=== PATIENT | female | born 2005 | race Caucasian/White ===

== ENCOUNTER 2025-06-26 18:53 | Emergency (ER) | payer BC, SELFPAY ==
--- OUTSIDE RECORDS SUMMARY | 2025-06-26 19:10 | XMS_ITS | Clinical Summary ---
[facility] [address] [place] [address] Care Team Providers Care Frozen Food Department Manager Name Role Phone Osvaldo Quinteros MD Primary Care Provider [phone] Social History Tobacco Use Types Packs/Day Years Used Date Smoking Tobacco: Never Assessed Comments Unknown Sex and Gender Information Value Date Recorded Sex Assigned at Not on file Legal Sex Female 11:13 AM EDT Gender Identity Not on file Sexual Orientation Not on file Plan of Treatment Upcoming Encounters Date Type Department Care Team (Late st Contact Info) Description 08/22/2025 10:30 AM EDT Ancillary Procedure [facility] [address] [phone] 08/22/2025 11:00 AM EDT Office Visit [facility] [address] [phone] Santo Solis MD [address] [address] Health Maintenance Due Date Last Done Comments ANNUAL PHYSICAL 2005 HEPATITIS C SCREENING 2005 HPV VACCINES (1 - 3-dose series) 2020 MENINGOCOCCAL B VACCINE (1 o f 2 - Standard) 2021 TDAP/TD VACCINES (1 - Tdap) 2024 COVID-19 Vaccine (2023-2 5 season) 2025 INFLUENZA VACCINE 07/23/2025 MENINGOCOCCAL VACCINE Aged Out No denise pérez eligible based on patient's age to complete this topic Pneumococcal Vaccine 0-49 Aged Out No longer eligible based on patient's age to complete this topic Insurance [employer] Care Teams Frozen Food Department Manager Relationship Specialty Start Date End Date Osvaldo Quinteros MD [address] [facility] [place] [id number] PCP - General Family Medicine 06/25/25
--- NOTE | 2025-06-26 19:13 | ED_ITS ---
Discharge Plan Disposition Patient Disposition: Home, Self-Care Referrals Follow up/Referrals: Osvaldo Quinteros [Primary Care Provider, Medical] - See instructions Activity Restrictions/Add. Instructions Additional Instructions/Restrictions: At this time it was felt you are safe to be discharged home. If new or worsening symptoms please do not hesitate to return the emergency department, especially if your pain migrates to your right lower quadrant and become severe as I did not get a CT scan to evaluate for appendicitis today. If your pain persists beyond 3 to 5 days please follow-up with either your photofinishing laboratory worker or your family doctor for continued evaluation. Clinical Impressions Clinical Impression: Abdominal pain Instructions Patient Instructions: DI for Diarrhea and Traveler's Diarrhea -- Adult, DI for Diarrhea and Traveler's Diarrhea -- Child, DI for Nausea -- Adult, DI for Nausea -- Child Print Language Print Language: Irish Discharge ED Provider: Ash Driscoll General Adult HPI General Chief complaint: Nausea/Vomiting/Diarrhea Stated complaint: Vomiting x3days Time Seen by Provider: 06/26/25 19:01 History of Present Illness HPI narrative: Patient 19-year-old female with no pertinent past medical history who presents emergency department for evaluation of nausea and vomiting. History is obtained by patient at bedside. She has been trying to conceive and is on a progesterone trial right now has had sore breast, nausea, vomiting, vague abdominal cramping pain. No dysuria. No chest pain reported. She does not have any abdominal pain currently. When she was vomiting she had an episode of passing out which caused her to become concerned and presented for continued evaluation. No trauma. No other acute complaints at this time. Please note that above description of symptoms, in this electronic medical record under categorization of recalled from ER triage doctor by RN are reflective of an initial nursing assessment, however, is not reflective of my full history and physical exam that was personally taken and clarified. Consequentially, this preceding description of symptoms, which may include the patient's categorized chief complaint in the EMR, do not reflect my personal clinical impression, and the ultimate description of history of present illness and patient stated complaints should be deferred to this section of the note. Unless stated otherwise or congruent with this section of the note, additional signs, symptoms, or incongruence should be interpreted as inaccurate with my clinical impression. Related Data Allergies Allergy/AdvReac Type Severity Reaction Status Date / Time No Known Allergies Allergy Verified 06/26/25 19:24 [facility] Disclaimer: The information contained in this section may have been updated after the patient was seen, as this information can be updated by other users. Social History Smoking Status: Never smoker alcohol intake: never current occupational status: other Travel in the last 8 weeks?: None ROS Obtained: Yes Systems reviewed as appropriate & no additional complaints except as documented Physical Exam General General appearance: alert Head Head exam: atraumatic and normocephalic Eye Eye exam: Present PERRL and EOMI ENT ENT exam: Present mucous membranes moist Neck Neck exam: Present normal inspection Chest Chest inspection: Present normal inspection and symmetric chest wall rise Respiratory Respiratory exam: Absent respiratory distress Cardiovascular Cardiovascular exam: Present regular rate and normal rhythm Abdominal Exam Abdominal exam: Present soft and tenderness (Mild, suprapubic left-sided); Absent guarding or rebound Extremities Exam Extremities exam: Present normal inspection Neurological Exam Neurological exam: Present alert Psychiatric Psychiatric exam: Present normal affect Skin Skin exam: Present warm and dry Medical Decision Making Medical Records Screening: Per USPSTF and CDC recommendations, given the prevalence of disease in our region, it is our hospital?s policy to screen for HIV and viral Hepatitis for all patients aged 18 and over and those with ongoing risk factors. Drew Inquiry Pt receiving controlled substance: No Vital Signs: 06/26/25 19:15 06/26/25 20:25 06/26/25 21:30 Temperature 98.6 F 98.5 F Temperature Source Oral Pulse Rate 86 83 Pulse Rate [Right] 112 H Respiratory Rate 16 16 18 Blood Pressure 151/93 H 130/74 Blood Pressure [Right Arm] 152/96 H Blood Pressure Mean [Right Arm] 114 02 Sat by Pulse Oximetry 96 100 98 Oxygen Delivery Method Room Air Room Air Room Air Lab Data Lab Results 06/26/25 19:03: Urine Color Yellow, Urine Appearance Clear, Urine pH 5.5, Ur Specific [place] <= 1.005, Urine Protein Negative, Urine Glucose (UA) Negative, Urine Ketones Negative, Urine Blood Negative, Urine Nitrate Negative, Urine Bilirubin Negative, Urine Urobilinogen 0.2, Ur Leukocyte Esterase Negative, Urine RBC None, Urine WBC None, Ur Squamous Epith Cells Occasional, Urine Bacteria Trace 06/26/25 19:18: WBC 9.2, RBC 4.95, Hgb 14.2, Hct 42.1, MCV 85.1, MCH 28.7, MCHC 33.7, RDW 11.5, Plt Count 364, MPV 8.9, Neut % (Auto) 63.9, Lymph % (Auto) 26.2, Garfield % (Auto) 7.6, Eos % (Auto) 1.8, Baso % (Auto) 0.4, Neut # (Auto) 5.9, Lymph # (Auto) 2.4, Garfield # (Auto) 0.7, Eos # (Auto) 0.2, Baso # (Auto) 0.0, Sodium 140, Potassium 4.7, Chloride 104, Carbon Dioxide 27, Anion Gap 13.7, BUN 10, Creatinine 0.70, Estimated Creat Clear 107, Estimated GFR 108, Est GFR ( Amer) 130, Glucose 79, Calcium 9.6, Total Bilirubin 0.6, AST 36, ALT 21, Alkaline Phosphatase 63, Total Protein 7.9, Albumin 4.6, Globulin 3.3 H, Albumin/Globulin Ratio 1.4, Lipase 145, Serum HCG, Qual Negative 06/26/25 19:18 06/26/25 19:18 Orders (Tests/Meds): ED MEDICATIONS Discontinued Medications Generic Name Dose Route Start Last Admin Trade Name Freq PRN Reason Stop Dose Admin Acetaminophen 1,000 mg 06/26/25 19:12 06/26/25 19:29 Acetaminophen 1,000mg/100ml Vial IV 06/26/25 19:13 1,000 mg ONCE ONE Administration Dicyclomine HCl 10 mg 06/26/25 20:16 06/26/25 20:22 Dicyclomine 10mg Capsule PO 06/26/25 20:17 10 mg ONCE ONE Administration Ketorolac Tromethamine 30 mg 06/26/25 20:15 06/26/25 20:22 Ketorolac 30mg/Ml Vial IV 06/26/25 20:16 30 mg ONCE ONE Administration Ondansetron HCl 4 mg 06/26/25 19:12 06/26/25 19:29 Ondansetron 4mg/2ml Vial IV 06/26/25 19:13 4 mg ONCE ONE Administration ORDERS Category Date Time Status US transvaginal Stat Exams 06/26/25 20:15 Completed CBC w/Auto Diff [Complete Blood Count Auto Diff] Stat Lab 06/26/25 19:18 Completed CMP [Comprehensive Metabolic Panel] Stat Lab 06/26/25 19:18 Completed HCG Qualitative, Serum Stat Lab 06/26/25 19:18 Completed Lipase Stat Lab 06/26/25 19:18 Completed UA [Urinalysis and Microscopic] Stat Lab 06/26/25 19:03 Completed ECG Data Tracing #1: Independently inter by me rate is 95, rhythm is regular, axis is normal, no ST elevation in anatomical contiguous leads, QTc 389. Medical Decision Narrative: In summary patient is a 19-year-old female past medical history described above who presents emergency department for evaluation of nausea, vomiting in the setting of trying to conceive and syncope. Patient is hemodynamically stable and nontoxic-appearing upon open, afebrile. Patient has nontender abdominal exam. From nausea vomiting standpoint differential includes , less likely pancreatitis, viral syndrome, among others. Workup we conducted with hematologic labs, urinalysis. Interventions include crystalloid bolus, Zofran, IV Tylenol. From a syncope standpoint she has a strong story for vasovagal syncope and did not have any resultant trauma therefore limited workup will be conducted with EKG. Diagnostic imaging abdomen was considered but has a benign exam and no pain currently will be deferred. Initial workup reviewed by me hematologic labs are nonactionable no significant leukocytosis no KATE or critical electrolyte abnormality patient is not urinalysis interpreted by me and not consistent with infection. Per repeat evaluation patient had resurgence of her lower abdominal pain worse on the left. Given this and her history of polycystic ovarian syndrome transvaginal ultrasound will be obtained to rule out torsion. Bentyl and Toradol will be administered. Transvaginal ultrasound has a retroverted uterus that is normal, numerous follicles in the ovaries bilaterally left ovary 3.5 x 2.2 cm, normal ovarian flow on Doppler. Given this combined with ovarian size I am not concerned for torsion at this time. Plan repeat evaluation patient was resting comfortably in bed and is appropriate for outpatient management at this time was discharged with return precautions and verbalized understanding. Critical Care Critical Care Time Critical Care Time: No
[2025-06-26 19:15] VITALS: BP 152/96; PULSE 112; RESP 16; TEMP 37; O2SAT 96; BMI 47.8
[2025-06-26 19:20] LABS: Bilirubin,Urine Negative (Negative); Color,Urine YELLOW (Yellow); Glucose,Urine (UA) Negative (Negative); Ketones,Urine Negative (Negative); Leukocyte Esterase,Urine Negative (Negative); Microscopic, Urine URINE MICROSCOPIC (MICROSCOPIC); PH,Urine 5.5 (5.0-8.5); Protein,Urine Negative (Negative); Specific Gravity, Urine <= 1.005 (1.005-1.030); Urobilinogen,Urine 0.2 EU/dl (0.2)
[2025-06-26 19:25] LABS: Hematocrit 42.1 % (37.0-47.0); Hemoglobin 14.2 g/dL (12.2-16.2); Immature Granulocytes % 0.1 %; Mean Corpuscular HGB Conc 33.7 g/dL (31.8-35.4); Mean Corpuscular Hemoglobin 28.7 pg (27.0-31.2); Mean Corpuscular Volume 85.1 fl (81-99); Nucleated Red Blood Cells % 0 %; Platelet Count 364 K/mm3 (142-424); Red Blood Count 4.95 M/mm3 (4.20-5.40); Red Cell Distribution Width-SD 35.5 fL; White Blood Count 9.2 K/mm3 (4.5-13.0)
[2025-06-26] MEDS: ONDANSETRON 4MG/2ML VIAL 4 MG IV (19:29)
[2025-06-26] MEDS: ACETAMINOPHEN 1,000MG/100ML VIAL 1000 MG IV (19:29)
[2025-06-26 19:41] LABS: Alanine Aminotransferase 21 U/L (12-78); Albumin Level 4.6 g/dl (3.5-5.0); Albumin/Globulin Ratio 1.4 (1.1-1.8); Alkaline Phosphatase 63 U/L (38-126); Anion Gap 13.7 mEq/L (5-15); Aspartate Amino Transferase 36 U/L (14-36); Bilirubin,Total 0.6 mg/dl (0.2-1.3); Blood Urea Nitrogen 10 mg/dl (7-17); Calcium 9.6 mg/dl (8.4-10.2); Carbon Dioxide 27 mmol/L (22.0-30.0); Chloride 104 mmol/L (98-107); Creatinine Clearance Estimated 107 mL/min (50-200); Creatinine,Serum 0.70 mg/dl (0.52-1.04); Estimated Glomerular Filt Rate 108 ml/min (>60); GFR (African American) 130 ML/MIN (>60); Globulin 3.3 g/dL (1.3-3.2); Glucose 79 mg/dl (74-100); Lipase 145 U/L (23-300); Potassium 4.7 mmoL/L (3.5-5.1); Sodium 140 mmol/L (136-145); Total Protein,Serum 7.9 g/dl (6.3-8.2)
[2025-06-26 19:43] LABS: HCG Qualitative, Serum Negative (Negative)
[2025-06-26 19:47] LABS: Bacteria,Urine Trace /lpf; Squamous Epithelial Cell,Urine Occasional #/hpf (0-5)
--- NOTE | 2025-06-26 20:15 | US_ITS ---
PROCEDURE INFORMATION: Exam: US Pelvis, Transvaginal, Non-Obstetric Exam date and time: 06/26/2025 8:33 PM Age: 19 years old Clinical indication: Pelvic pain; Llq pain; Additional info: Torsion ruleout TECHNIQUE: Imaging protocol: Real-time transvaginal pelvic (non-obstetric) ultrasound with image documentation. Transvaginal imaging was used for better evaluation of the endometrium, adnexa, and/or cervix. COMPARISON: No relevant prior studies available. FINDINGS: Uterus: Uterus is retroverted and normal. 6.4 x 2.6 x 3.3 cm for a volume of 29 cc. Endometrial stripe is normal, 5 mm.. Right ovary/adnexa: Numerous small follicles. 3.5 x 2.2 x 1.6 cm for a volume of 6.6 cc. No mass. Normal ovarian blood flow on color Doppler. Left ovary/adnexa: Numerous small follicles. 3.5 x 2.2 x 1.4 cm for a volume of 5.3 cc. No mass. Normal ovarian blood flow on color Doppler. Urinary bladder: Urinary bladder is limited. Intraperitoneal space: No free fluid. IMPRESSION: No evidence of torsion. Numerous small follicles, consider PCOS.
--- NOTE | 2025-06-26 20:17 | PC.NURSE ---
Had radiology page for ultra sound to R/O torsion
[2025-06-26] MEDS: KETOROLAC 30MG/ML VIAL 30 MG IV (20:22)
[2025-06-26 20:25] VITALS: BP 151/93; PULSE 86; RESP 16; TEMP 36.9; O2SAT 100
[2025-06-26 21:30] VITALS: BP 130/74; PULSE 83; RESP 18; O2SAT 98
[2025-06-26 22:14] VITALS: BP 119/84; PULSE 86; RESP 21; TEMP 36.6; O2SAT 98
== END 2025-06-26 22:17 | disposition home or self-care (01) ==
PROVIDERS: Emergency Provider Emergency Medicine; PCP Family Medicine
DX: R10.9 Unspecified abdominal pain (principal); R11.10 Vomiting, unspecified; R55 Syncope and collapse
CPT/HCPCS: 76830; 80053; 81001; 83690; 84703; 85025; 93005; 96374; 96375; 99285; J0131; J1885; J2405

== ENCOUNTER 2025-07-21 11:23 | Emergency (ER) | payer BC, SELFPAY ==
--- OUTSIDE RECORDS SUMMARY | 2025-07-21 11:37 | XMS_ITS | Clinical Summary ---
[facility] Address [address] [place] [address] Care Team Providers Care Baggage Smasher Name Role Phone Osvaldo Quinteros MD Primary Care Provider [phone] Social History Tobacco Use Types Packs/Day Years [...] Description 08/22/2025 10:30 AM EDT Ancillary Procedure [facility] [address] [phone] 08/22/2025 11:00 AM EDT Office Visit [facility] [address] [phone] Santo Solis MD [address] [address] Health Maintenance Due Date Last Done Comments ANNUAL PHYSICAL 2005 HEPATITIS C SCREENING 2005 HPV VACCINES (1 - 3-dose series) 2020 MENINGOCOCCAL B VACCINE (1 o f 2 - Standard) 2021 TDAP/TD VACCINES (1 - Tdap) 2024 INFLUENZA VACCINE 05/23/2025 MENINGOCOCCAL VACCINE Aged Out No denise pérez eligible based on patient's age to complete this topic Pneumococcal Vaccine 0-49 Aged Out No longer eligible based on patient's age to complete this topic Insurance [employer] EM[employer]OY[employer] Member Subscriber Plan / Payer (Ef fective 2025-Present) Name:Kevin Meghna Relation to Subscriber:Child Name:Marimar Soliman Date of :1978 Address: [address] [place] [address] Payer ID:[id number] (NAIC) Type:Not on file Address: [facility] [id number] [place] [id number] Care Teams Baggage Smasher Relationship Specialty Start Date End Date Osvaldo Quinteros MD [address] [place] [address] PCP - General Family Medicine 06/25/25
[2025-07-21 11:39] VITALS: BP 110/63; PULSE 90; RESP 17; TEMP 36.6; O2SAT 100; BMI 33.6
--- NOTE | 2025-07-21 11:58 | HMH.EDGENADL ---
Discharge Plan Disposition Patient Disposition: Home, Self-Care Condition: Good Prescriptions Prescriptions: New ondansetron 4 mg tablet,disintegrating 4 mg PO Q6H PRN (Reason: nausea and vomiting) Qty: 14 0RF ketorolac 10 mg tablet 10 mg PO Q6H PRN (Reason: pain) 5 Days Qty: 20 0RF No Action ondansetron 4 mg tablet,disintegrating 4 mg PO Q8H PRN (Reason: nausea and vomiting) 4 Days Qty: 12 0RF Referrals Follow up/Referrals: Osvaldo Quinteros [Primary Care Provider, Medical] - See instructions Marie Perez [Referring, Medical] - See instructions Activity Restrictions/Add. Instructions Additional Instructions/Restrictions: Please return to the emergency department with any worsening signs or symptoms. Please take your medication as prescribed. Please take your anti-inflammatory medication as prescribed, not exceeding 40 mg a day max dosing. Please take with food. Please use your antinausea medicine as prescribed. Please keep your follow-up appointment in surgery with your TECHNICAL PROGRAM MANAGER provider. Clinical Impressions Clinical Impression: History of PCOS, History of endometriosis, Abdominal pain, Nausea & vomiting Instructions Patient Instructions: Polycystic Ovary Syndrome, DI for Endometriosis, DI for Acute Abdominal Pain Print Language Print Language: [place] Discharge ED Provider: Sandrine London General Adult HPI <JC Bills - Last Filed: 07/21/25 13:58> General Chief complaint: Abdominal Pain Stated complaint: abd Pain, blood in vomit, Surgery scheduled 07/29 Time Seen by Provider: 07/21/25 11:48 Mode of Arrival: Ambulatory Source of Information: Patient Description of Symptoms (Recalled from ER Triage Doc. by RN): Patient presents to ED with c/o n/v and lower abdominal cramping. Patient states she is scheduled for surgery 07/29 due to PCOS and Endometriosis, states she thinks symptoms are related as she has experienced these symptoms on and off for a long time . Patient notes a scant amount of bright red blood in her vomit this AM. History of Present Illness HPI narrative: 19-year-old female presents the emergency department accompanied by her father for lower abdominal pain nausea vomiting, for the last 4 to 5 days, patient has had 2 episodes of blood-tinged , vomit, this a.m., patient admits to objective fever chills denies any chest pain or shortness of breath, denies any diarrhea constipation, denies any urinary type symptomatology, denies any vaginal discharge, denies any vaginal bleeding, denies any new risky sexual contacts or sexual behaviors, patient has longstanding history of PCOS and endometriosis, states this pain is somewhat similar to her baseline, patient is slated for what sounds like an endometrial ablation next month in [facility]. Patient denies any alcohol tobacco or drug use, denies any other real relevant past medical history, takes no other medications at home except for GLP-1 agonist for weight loss for which she recently stopped prior to her surgery. Initial triage vitals are unremarkable, of note patient endorses poor p.o. intake, and called her TECHNICAL PROGRAM MANAGER physician's office, who prompted her to come to the emergency department for fluids , and to get checked out . Please note that above description of symptoms, in this electronic medical record under categorization of recalled from ER triage doctor by RN are reflective of an initial nursing assessment, however, is not reflective of my full history and physical exam that was personally taken and clarified. Consequentially, this preceding description of symptoms, which may include the patient's categorized chief complaint in the EMR, do not reflect my personal clinical impression, and the ultimate description of history of present illness and patient stated complaints should be deferred to this section of the note. Unless stated otherwise or congruent with this section of the note, additional signs, symptoms, or incongruence should be interpreted as inaccurate with my clinical impression. Onset (ago): day(s) Related Data Previous Rx's ?Medication ?Instructions ?Recorded ondansetron 4 mg disintegrating 4 mg PO Q8H PRN nausea and 06/26/25 tablet vomiting 4 days #12 tabs ketorolac 10 mg tablet 10 mg PO Q6H PRN pain 5 days #20 07/21/25 tabs ondansetron 4 mg disintegrating 4 mg PO Q6H PRN nausea and 07/21/25 tablet vomiting #14 tabs Allergies Allergy/AdvReac Type Severity Reaction Status Date / Time No Known Allergies Allergy Verified 06/26/25 19:24 [facility] <JC Bills - Last Filed: 07/21/25 13:58> PFS Disclaimer: The information contained in this section may have been updated after the patient was seen, as this information can be updated by other users. Social History (Updated 06/26/25 @ 22:14 by Ash Driscoll MD) Smoking Status: Former smoker alcohol intake: never current occupational status: other Travel in the last 8 weeks?: None Have you lived/traveled outside [place] in past 30 days?: No Contact w/someone who lives/traveled outside US past 30 days?: No Exposure to someone with infectious disease in past 14 days?: No Do you have a fever (greater than 100.4 F or 38 C)?: No Have you tested positive for COVID-19?: No Exposed to someone with COVID-19 in past 14 days?: No Do you have a sore throat?: No Do you have a cough?: No Do you have any weakness?: No Do you have any diarrhea?: No Are you experiencing any unusual bleeding?: No Do you have any muscle aches/pain?: No Do you have any abdominal pain?: No Are you experiencing loss of taste or smell?: No <JC Bills - Last Filed: 07/21/25 13:58> ROS Obtained: Yes All systems reviewed & no additional complaints except as documented Physical Exam <JC Bills - Last Filed: 07/21/25 13:58> General General appearance: alert and in no apparent distress Head Head exam: atraumatic and normocephalic Eye Eye exam: Present PERRL and EOMI ENT ENT exam: Present mucous membranes moist Neck Neck exam: Present normal inspection Chest Chest inspection: Present normal inspection and symmetric chest wall rise Respiratory Respiratory exam: Present normal lung sounds bilaterally; Absent respiratory distress Cardiovascular Cardiovascular exam: Present regular rate and normal rhythm Abdominal Exam Abdominal exam: Present soft and tenderness; Absent guarding, rebound or rigidity Abdominal tenderness: Present suprapubic and mild Extremities Exam Extremities exam: Present normal inspection Neurological Exam Neurological exam: Present alert and oriented X3 Psychiatric Psychiatric exam: Present normal affect Skin Skin exam: Present warm and dry Medical Decision Making <JC Bills - Last Filed: 07/21/25 13:58> Medical Records Medical records reviewed: Yes I reviewed the patient's medical records. Screening: Per USPSTF and CDC recommendations, given the prevalence of disease in our region, it is our hospital?s policy to screen for HIV and viral Hepatitis for all patients aged 18 and over and those with ongoing risk factors. Drew Inquiry Pt receiving controlled substance: No Drew was queried for this patient: No Vital Signs: 07/21/25 11:39 07/21/25 12:01 07/21/25 13:25 Temperature 97.9 F Temperature Source Oral Pulse Rate 99 H 96 H Pulse Rate [Right] 90 Respiratory Rate 17 17 Blood Pressure 106/72 L 130/76 Blood Pressure [Right Arm] 110/63 Blood Pressure Mean 93 Blood Pressure Mean [Right Arm] 78 Blood Pressure Source [Right Arm] Automatic Cuff Blood Pressure Position [Right Arm] Sitting 02 Sat by Pulse Oximetry 100 99 99 Oxygen Delivery Method Room Air Room Air 07/21/25 13:31 07/21/25 13:45 07/21/25 14:05 Temperature 98.5 F Temperature Source Pulse Rate 87 80 89 Pulse Rate [Right] Respiratory Rate 19 19 Blood Pressure 105/68 L 105/68 L 117/79 Blood Pressure [Right Arm] Blood Pressure Mean 82 Blood Pressure Mean [Right Arm] Blood Pressure Source [Right Arm] Blood Pressure Position [Right Arm] 02 Sat by Pulse Oximetry 98 100 Oxygen Delivery Method Room Air Room Air Lab Data Lab results reviewed: Yes I reviewed the patient's lab results. Lab Results 07/21/25 12:55: WBC 8.5, RBC 4.85, Hgb 13.7, Hct 41.4, MCV 85.4, MCH 28.2, MCHC 33.1, RDW 11.5, Plt Count 329, MPV 8.9, Neut % (Auto) 61.0, Lymph % (Auto) 29.8, [place] % (Auto) 6.4, Eos % (Auto) 2.1, Baso % (Auto) 0.5, Neut # (Auto) 5.2, Lymph # (Auto) 2.5, [place] # (Auto) 0.5, Eos # (Auto) 0.2, Baso # (Auto) 0.0, Sodium 139, Potassium 4.0, Chloride 106, Carbon Dioxide 26, Anion Gap 11.0, BUN 7, Creatinine 0.60, Estimated Creat Clear 205, Estimated GFR 129, Est GFR ( Amer) 156, Glucose 85, Calcium 9.1, Magnesium 2.1, Total Bilirubin 0.4, AST 26, ALT 22, Alkaline Phosphatase 91, Total Protein 7.1, Albumin 4.1, Globulin 3.0, Albumin/Globulin Ratio 1.4, Lipase 90 07/21/25 13:24: Urine HCG, Qual Negative 07/21/25 13:26: Urine Color Yellow, Urine Appearance Clear, Urine pH 6.0, Ur Specific [place] 1.015, Urine Protein Negative, Urine Glucose (UA) Negative, Urine Ketones Negative, Urine Blood Negative, Urine Nitrate Negative, Urine Bilirubin Negative, Urine Urobilinogen 0.2, Ur Leukocyte Esterase Negative, Urine RBC None, Urine WBC Occasional, Ur Squamous Epith Cells 5-10, Urine Bacteria 2+ 07/21/25 12:55 07/21/25 12:55 Orders (Tests/Meds): ED MEDICATIONS Discontinued Medications Generic Name Dose Route Start Last Admin Trade Name Freq PRN Reason Stop Dose Admin Ketorolac Tromethamine 15 mg 07/21/25 12:11 07/21/25 12:23 Ketorolac 15mg/Ml Vial IV 07/21/25 12:12 15 mg ONCE ONE Administration Ondansetron HCl 4 mg 07/21/25 12:11 07/21/25 12:23 Ondansetron 4mg/2ml Vial IV 07/21/25 12:12 4 mg ONCE ONE Administration ORDERS Category Date Time Status US transvaginal Stat Exams 07/21/25 12:07 Completed Complete Blood Count Auto Diff Stat Lab 07/21/25 12:55 Completed Comprehensive Metabolic Panel Stat Lab 07/21/25 12:55 Completed Lactic Acid Stat Lab 07/21/25 12:06 Ordered Lipase Stat Lab 07/21/25 12:55 Completed Magnesium Stat Lab 07/21/25 12:55 Completed Urinalysis and Microscopic Stat Lab 07/21/25 13:26 Completed Urine , HCG Qual. Stat Lab 07/21/25 13:24 Completed Urine Culture Stat Micro 07/21/25 13:26 Received Medical Decision Narrative: 19-year-old female presents to the emergency department with lower abdominal pain nausea vomiting for the last 4 to 5 days, 2 episodes of blood-tinged vomit differential diagnose include but not limited to endometriosis, PCOS, ovarian torsion, ovarian cyst rupture, adhesions, acute UTI, among others. I discussed the patient's case with attending physician Will obtain basic laboratory studies, EKG, transvaginal ultrasound for further evaluation/characterization, lactic acid level, lipase level magnesium level UA, urine hCG, 15 mg IV Toradol, and 4 mg IV Zofran for nausea and pain. CBC unremarkable CMP is unremarkable I reviewed the patient's transvaginal ultrasound along the corresponding radiologic report, multiple bilateral ovarian follicles all which demonstrate peripheral distribution 1 nonspecific similar feature can be seen with context of PCOS, correlate clinically. hCG qualitative negative UA is notable for negative leukocyte esterase no RBCs 5-10 squamous cells 2+ bacteria occasional WBCs. I discussed the results with the patient and family at bedside patient and family are in agreement with current discharge plan/treatment plan, patient will keep her slated appointment for surgery with her TECHNICAL PROGRAM MANAGER in the upcoming days, I will prescribe the patient 4 mg p.o. Zofran, as well as 10 mg p.o. Toradol every 6 for pain, patient was given strict ED return precautions. Patient voiced understanding and agreement with current treatment plan/discharge plan. <Sandrine London, DO - Last Filed: 07/21/25 16:02> Vital Signs: 07/21/25 11:39 07/21/25 12:01 07/21/25 13:25 Temperature 97.9 F Temperature Source Oral Pulse Rate 99 H 96 H Pulse Rate [Right] 90 Respiratory Rate 17 17 Blood Pressure 106/72 L 130/76 Blood Pressure [Right Arm] 110/63 Blood Pressure Mean 93 Blood Pressure Mean [Right Arm] 78 Blood Pressure Source [Right Arm] Automatic Cuff Blood Pressure Position [Right Arm] Sitting 02 Sat by Pulse Oximetry 100 99 99 Oxygen Delivery Method Room Air Room Air 07/21/25 13:31 07/21/25 13:45 07/21/25 14:05 Temperature 98.5 F Temperature Source Pulse Rate 87 80 89 Pulse Rate [Right] Respiratory Rate 19 19 Blood Pressure 105/68 L 105/68 L 117/79 Blood Pressure [Right Arm] Blood Pressure Mean 82 Blood Pressure Mean [Right Arm] Blood Pressure Source [Right Arm] Blood Pressure Position [Right Arm] 02 Sat by Pulse Oximetry 98 100 Oxygen Delivery Method Room Air Room Air Lab Data Lab Results 07/21/25 12:55: WBC 8.5, RBC 4.85, Hgb 13.7, Hct 41.4, MCV 85.4, MCH 28.2, MCHC 33.1, RDW 11.5, Plt Count 329, MPV 8.9, Neut % (Auto) 61.0, Lymph % (Auto) 29.8, [place] % (Auto) 6.4, Eos % (Auto) 2.1, Baso % (Auto) 0.5, Neut # (Auto) 5.2, Lymph # (Auto) 2.5, [place] # (Auto) 0.5, Eos # (Auto) 0.2, Baso # (Auto) 0.0, Sodium 139, Potassium 4.0, Chloride 106, Carbon Dioxide 26, Anion Gap 11.0, BUN 7, Creatinine 0.60, Estimated Creat Clear 205, Estimated GFR 129, Est GFR ( Amer) 156, Glucose 85, Calcium 9.1, Magnesium 2.1, Total Bilirubin 0.4, AST 26, ALT 22, Alkaline Phosphatase 91, Total Protein 7.1, Albumin 4.1, Globulin 3.0, Albumin/Globulin Ratio 1.4, Lipase 90 07/21/25 13:24: Urine HCG, Qual Negative 07/21/25 13:26: Urine Color Yellow, Urine Appearance Clear, Urine pH 6.0, Ur Specific [place] 1.015, Urine Protein Negative, Urine Glucose (UA) Negative, Urine Ketones Negative, Urine Blood Negative, Urine Nitrate Negative, Urine Bilirubin Negative, Urine Urobilinogen 0.2, Ur Leukocyte Esterase Negative, Urine RBC None, Urine WBC Occasional, Ur Squamous Epith Cells 5-10, Urine Bacteria 2+ Orders (Tests/Meds): ED MEDICATIONS Discontinued Medications Generic Name Dose Route Start Last Admin Trade Name Freq PRN Reason Stop Dose Admin Ketorolac Tromethamine 15 mg 07/21/25 12:11 07/21/25 12:23 Ketorolac 15mg/Ml Vial IV 07/21/25 12:12 15 mg ONCE ONE Administration Ondansetron HCl 4 mg 07/21/25 12:11 07/21/25 12:23 Ondansetron 4mg/2ml Vial IV 07/21/25 12:12 4 mg ONCE ONE Administration ORDERS Category Date Time Status US transvaginal Stat Exams 07/21/25 12:07 Completed Complete Blood Count Auto Diff Stat Lab 07/21/25 12:55 Completed Comprehensive Metabolic Panel Stat Lab 07/21/25 12:55 Completed Lactic Acid Stat Lab 07/21/25 12:06 Ordered Lipase Stat Lab 07/21/25 12:55 Completed Magnesium Stat Lab 07/21/25 12:55 Completed Urinalysis and Microscopic Stat Lab 07/21/25 13:26 Completed Urine , HCG Qual. Stat Lab 07/21/25 13:24 Completed Urine Culture Stat Micro 07/21/25 13:26 Received ECG Data Tracing #1: I reviewed this ECG and interpreted as documented below: Normal sinus rhythm at a rate of 82. Normal intervals. Normal axis. No acute ischemic changes. Nonspecific ST-T segment changes. -Sandrine London DO Medical Decision Narrative: 19-year-old female presents to the emergency department with lower abdominal pain nausea vomiting for the last 4 to 5 days, 2 episodes of blood-tinged vomit differential diagnose include but not limited to endometriosis, PCOS, ovarian torsion, ovarian cyst rupture, adhesions, acute UTI, among others. I discussed the patient's case with attending physician Will obtain basic laboratory studies, EKG, transvaginal ultrasound for further evaluation/characterization, lactic acid level, lipase level magnesium level UA, urine hCG, 15 mg IV Toradol, and 4 mg IV Zofran for nausea and pain. CBC unremarkable CMP is unremarkable I reviewed the patient's transvaginal ultrasound along the corresponding radiologic report, multiple bilateral ovarian follicles all which demonstrate peripheral distribution 1 nonspecific similar feature can be seen with context of PCOS, correlate clinically. hCG qualitative negative UA is notable for negative leukocyte esterase no RBCs 5-10 squamous cells 2+ bacteria occasional WBCs. I discussed the results with the patient and family at bedside patient and family are in agreement with current discharge plan/treatment plan, patient will keep her slated appointment for surgery with her TECHNICAL PROGRAM MANAGER in the upcoming days, I will prescribe the patient 4 mg p.o. Zofran, as well as 10 mg p.o. Toradol every 6 for pain, patient was given strict ED return precautions. Patient voiced understanding and agreement with current treatment plan/discharge plan. I was consulted by the THA, and we discussed the complexity of problems being addressed. I approved the treatment plan and management plan of this patient's care in the emergency department, thus performing a substantive portion of medical decision making. Sandrine London DO Critical Care <JC Bills - Last Filed: 07/21/25 13:58> Critical Care Time Critical Care Time: No
[2025-07-21 12:01] VITALS: BP 106/72; PULSE 99; O2SAT 99
--- NOTE | 2025-07-21 12:07 | US_ITS ---
PROCEDURE INFORMATION: Exam: US Pelvis, Transvaginal, Non-Obstetric Exam date and time: 07/21/2025 12:14 PM Age: 19 years old Clinical indication: Pelvic pain; Additional info: Lower abd pain, HX of cyst endometriosis TECHNIQUE: Imaging protocol: Real-time transvaginal pelvic (non-obstetric) ultrasound with image documentation. Transvaginal imaging was used for better evaluation of the endometrium, adnexa, and/or cervix. COMPARISON: US TRANSVAGINAL 06/26/2025 8:33 PM FINDINGS: Uterus: Uterus measures 4.2 x 2.8 x 3.9 cm. No focal myometrial lesions. Endometrial echo complex measures 3 mm. Right ovary/adnexa: Right ovary measures 2.9 x 2.1 x 2.0 cm (6 mL). There are multiple ovarian follicles all of which demonstrate peripheral distribution. No dominant lesion. Ovarian stroma is otherwise unremarkable. There is normal arterial inflow and venous outflow. Left ovary/adnexa: Left ovary measures 2.7 x 1.6 x 1.5 cm (4 mL). There are multiple ovarian follicles all of which demonstrate peripheral distribution. No dominant lesion Ovarian stroma is otherwise unremarkable. There is normal arterial inflow and venous outflow. Urinary bladder: Urinary bladder is limited. Intraperitoneal space: No free fluid. IMPRESSION: Multiple bilateral ovarian follicles all of which demonstrate peripheral distribution. While nonspecific, similar features can be seen in the context of polycystic ovarian syndrome. Correlate clinically.
--- NOTE | 2025-07-21 12:21 | ECG_ITS ---
APPROVED REPORT Exam: Resting ECG HR:82 bpm ECG Measurements Heart Rate 82 AXES NJ 150 P 32 QRSd 74 QRS 45 QT 357 T 17 QTc 395 Conclusion SINUS RHYTHM NORMAL ECG UNCONFIRMED REPORT Electronically signed by : IRAM BARRERA, 07/21/2025 23:01:25
[2025-07-21] MEDS: KETOROLAC 15MG/ML VIAL 15 MG IV (12:23)
[2025-07-21] MEDS: ONDANSETRON 4MG/2ML VIAL 4 MG IV (12:23)
[2025-07-21 13:02] LABS: Hematocrit 41.4 % (37.0-47.0); Hemoglobin 13.7 g/dL (12.2-16.2); Immature Granulocytes % 0.2 %; Mean Corpuscular HGB Conc 33.1 g/dL (31.8-35.4); Mean Corpuscular Hemoglobin 28.2 pg (27.0-31.2); Mean Corpuscular Volume 85.4 fl (81-99); Nucleated Red Blood Cells % 0 %; Platelet Count 329 K/mm3 (142-424); Red Blood Count 4.85 M/mm3 (4.20-5.40); Red Cell Distribution Width-SD 35.7 fL; White Blood Count 8.5 K/mm3 (4.5-13.0)
[2025-07-21 13:25] VITALS: BP 130/76; PULSE 96; RESP 17; O2SAT 99
[2025-07-21 13:25] LABS: Alanine Aminotransferase 22 U/L (12-78); Albumin Level 4.1 g/dl (3.5-5.0); Albumin/Globulin Ratio 1.4 (1.1-1.8); Alkaline Phosphatase 91 U/L (38-126); Anion Gap 11.0 mEq/L (5-15); Aspartate Amino Transferase 26 U/L (14-36); Bilirubin,Total 0.4 mg/dl (0.2-1.3); Blood Urea Nitrogen 7 mg/dl (7-17); Calcium 9.1 mg/dl (8.4-10.2); Carbon Dioxide 26 mmol/L (22.0-30.0); Chloride 106 mmol/L (98-107); Creatinine Clearance Estimated 205 mL/min (50-200); Creatinine,Serum 0.60 mg/dl (0.52-1.04); Estimated Glomerular Filt Rate 129 ml/min (>60); GFR (African American) 156 ML/MIN (>60); Globulin 3.0 g/dL (1.3-3.2); Glucose 85 mg/dl (74-100); Lipase 90 U/L (23-300); Magnesium 2.1 mg/dl (1.6-2.3); Potassium 4.0 mmoL/L (3.5-5.1); Sodium 139 mmol/L (136-145); Total Protein,Serum 7.1 g/dl (6.3-8.2)
[2025-07-21 13:28] LABS: Microscopic, Urine URINE MICROSCOPIC (MICROSCOPIC)
[2025-07-21 13:31] VITALS: BP 105/68; PULSE 87; RESP 19; O2SAT 98
[2025-07-21 13:31] LABS: Urine Pregnancy, HCG Qual. Negative (Negative)
[2025-07-21 13:36] LABS: Bilirubin,Urine Negative (Negative); Color,Urine YELLOW (Yellow); Glucose,Urine (UA) Negative (Negative); Ketones,Urine Negative (Negative); Leukocyte Esterase,Urine Negative (Negative); PH,Urine 6.0 (5.0-8.5); Protein,Urine Negative (Negative); Specific Gravity, Urine 1.015 (1.005-1.030); Urobilinogen,Urine 0.2 EU/dl (0.2)
[2025-07-21 13:45] VITALS: BP 105/68; PULSE 80; O2SAT 100
[2025-07-21 13:48] LABS: Bacteria,Urine 2+ /lpf; WBC,Urine Occasional #/hpf (0-3)
[2025-07-21 14:05] VITALS: BP 117/79; PULSE 89; RESP 19; TEMP 36.9; O2SAT 98
== END 2025-07-21 14:06 | disposition home or self-care (01) ==
PROVIDERS: Physician Assistant; Emergency Provider Student in an Organized Health Care Education/Training Program; PCP Family Medicine
DX: R10.30 Lower abdominal pain, unspecified (principal); R11.2 Nausea with vomiting, unspecified; E28.2 Polycystic ovarian syndrome; N80.9 Endometriosis, unspecified
CPT/HCPCS: 76830; 80053; 81001; 81025; 83690; 83735; 85025; 87086; 93005; 96374; 96375; 99285; J1885; J2405